=== PATIENT | male | born 1975 | race Caucasian/White ===

== ENCOUNTER 2021-01-01 17:52 | Emergency (ER) | payer OTHER ==
[2021-01-01 21:50] LABS: BILIRUBIN NEGATIVE (NEGATIVE); BLOOD NEGATIVE Ery/uL (NEGATIVE); CLARITY CLEAR (CLEAR); COLOR YELLOW (YELLOW); GLUCOSE (U) NORMAL (NORMAL); LEUKOCYTES NEGATIVE Leu/uL (NEGATIVE); NITRITE NEGATIVE (NEGATIVE); PROTEIN NEGATIVE (NEGATIVE); SPECIFIC GRAVITY 1.015 (1.001-1.030); UROBILINOGEN 0.2 mg/dL (0.2-1.0)
[2021-01-01 23:19] LABS: BASOPHIL 0.8 % (0-2); EOSINOPHIL 2.7 % (0-5); HCT 40.6 % (42.0-52.0); HGB 13.2 g/dl (13.2-18.0); LYMPHOCYTE 31.3 % (15-48); MCH 29.9 pg (25.0-31.0); MCHC 32.5 g/dL (32.0-36.0); MCV 92.1 fL (78.0-100.0); MONOCYTE 8.7 % (0-12); MPV 9.2 fL (6.0-9.5); NEUTROPHIL 56.3 % (41-80); NRBC 0; PLT 254 K/uL (150-400); RBC 4.41 M/uL (4.70-6.00); RDW 11.9 % (11.5-14.0); WBC 5.2 K/uL (4.0-10.5)
[2021-01-01 23:39] LABS: ALBUMIN 3.1 g/dL (3.4-5.0); BILIRUBIN - TOTAL 0.2 mg/dL (0.2-1.0); BUN/CREAT RATIO (CALC) 16.9 RATIO; C-REACTIVE PROTEIN 0.6 mg/dL (<=0.90); CREATININE 0.77 mg/dL (0.67-1.17); GLOBULIN (CALCULATION) 3.9 g/dL; POTASSIUM 4.1 mmol/L (3.5-5.1)
[2021-01-02] MEDS ORDERED: CYCLOBENZAPRINE10 MG PO (01:47)
[2021-01-02] MEDS ORDERED: LIDOCAINE 5% P1 EACH TOP (01:47)
[2021-01-02] MEDS ORDERED: MOBIC7.5 MG PO (01:47)
== END 2021-01-02 02:22 | disposition home or self-care (01) ==
LOC: FER 17:52
PROVIDERS: Emergency Medicine Emergency Medical Services
DX: M54.6 Pain in thoracic spine (principal); G89.29 Other chronic pain; F17.210 Nicotine dependence, cigarettes, uncomplicated
CPT/HCPCS: 36415; 72072; 72100; 72128; 72131; 80053; 81003; 85025; 86140; 96372; J1040; J1170; J1885